=== PATIENT | male | born 2000 | race Caucasian/White ===

== ENCOUNTER → 2023-09-04 10:57 | Outpatient (CLI) | payer BC, SELFPAY ==
--- NOTE | ~2023-09-04 | MR_ITS ---
EXAMINATION: MR ankle RT wo con DATE: 09/04/2023 11:49 INDICATION: Achilles tendon tear TECHNIQUE: Magnetic resonance imaging (MRI) of the right ankle was performed without intravenous cont rast. Sequences included sagittal, coronal, and axial proton-density weighted fast spin echo without and with fat saturation. COMPARISON: None. FINDINGS: Medial ankle ligaments: Deep and superficial deltoid ligaments as well as the spring ligament are normal. Lateral ankle ligaments: The anterior and posterior inferior tibiofibular ligaments are normal. The anterior talofibular, calc aneofibular and posterior talofibular ligaments are normal. Tendons: Subtle increased intrasubstance signal in the distal Achilles tendon without tear or thickening of th e tendon consistent with minimal tendinosis. The peroneus longus and brevis tendons are normal. The t ibialis anterior and extensor hallucis longus and extensor digitorum longus tendons are normal. The t ibialis posterior, flexor digitorum longus and flexor hallucis longus tendons are normal. Plantar fascia: Plantar aponeurosis is normal. Bones/other: Bone alignment is normal. There are couple low signal intensity bone islands in the posterior calcane us. Bone marrow signal is normal with no reactive edema, fracture or pathologic marrow replacing proc ess. Joint spaces are normal. Fluid: There is a 1.9 x 1.1 x 1.2 cm fluid collection with a few internal septations posterior to the talus which could represent fluid within the posterior recess or a ganglion cyst. No increased fluid throug hout the remaining recess of the ankle joint. Otherwise physiologic amount fluid in the joint spaces with no tenosynovitis or other abnormal fluid collections. IMPRESSION: 1. Minimal distal Achilles tendinosis without tear. 2. Small collection of fluid posterior to the talar dome most likely representing fluid within the po sterior recess of the ankle joint with differential including less likely a ganglion cyst. Reviewed, dictated and finalized at location A. IMPRESSION: 1. Minimal distal Achilles tendinosis without tear. 2. Small collection of fluid posterior to the talar dome most likely representi ng fluid within the posterior recess of the ankle joint with differential inclu ding less likely a ganglion cyst.
== END ==
PROVIDERS: PCP Podiatrist Foot & Ankle Surgery; Visit Provider Podiatrist Foot & Ankle Surgery
DX: M76.61 Achilles tendinitis, right leg (principal)
CPT/HCPCS: 73721